=== PATIENT | female | born 1980 ===

== ENCOUNTER 2021-06-07 08:27 | Outpatient (CLI) | payer OTHER | END 2021-06-07 10:14 | disposition home or self-care (01) | LOC: SONOGRAMA 08:27 | PROVIDERS: ATTEND Pathology Anatomic Pathology & Clinical Pathology | DX: E04.2 Nontoxic multinodular goiter (principal) ==

== ENCOUNTER 2024-04-01 09:14 | Outpatient (CLI) | payer OTHER | END 2024-04-01 09:16 | disposition home or self-care (01) | LOC: SONOGRAMA 09:14 | PROVIDERS: ATTEND Pathology Anatomic Pathology & Clinical Pathology | DX: D34 Benign neoplasm of thyroid gland (principal); E07.89 Other specified disorders of thyroid; E04.2 Nontoxic multinodular goiter ==